=== PATIENT | female | born 1965 | race Caucasian/White ===

== ENCOUNTER → 2016-08-10 | Outpatient (CLI) | payer OTHER ==
[2015-03-30 10:44] VITALS: BP 103/66
[~2016-08-10] MED LIST: CALC500T50 PO; CHOL2000 PO; CLON1TAB3 PO; EXEM25TA PO; FLUV100T2 PO; FLUV150C PO; LIDO700A4 TP; NADO20TA PO; NADO40TA PO; QUET100T4 PO; QUET200T4 PO
--- NOTE | 2016-08-10 13:15 | RAD ---
PROCEDURE MRI of the lumbar spine without contrast 08/10/2016 HISTORY Low back pain which radiates down the right leg for 1 month. TECHNIQUE Unenhanced T1 weighted, T2 weighted and inversion recovery sagittal and T1 weighted and T2 weighted axial images of the lumbar spine were obtained. FINDINGS Comparison study is dated 11/22/2011. Mild S-shaped curvature of the thoracolumbar spine is seen. Degenerative signal changes and loss of height are seen involving the L3-4, L4-5 and L5-S1 discs. Degenerative signal changes are seen within the marrow surrounding these discs. The conus medullaris is normal in morphology, position, and signal characteristics. The L1-2 disc space is within normal limits. At the L2-3 and L3-4 disc spaces there are mild to moderate generalized disc bulges. Degenerative changes are seen involving the facet joints bilaterally. There is mild ligamentum flavum hypertrophy. These findings do not result in significant central spinal canal or neural foraminal stenosis. At the L4-5 disc space the patient is status post right hemilaminectomy. There is a moderate generalized disc bulge. This is eccentric to the left. Degenerative changes are seen involving the facet joints, left greater than right. These findings when combined do not result in significant central spinal canal stenosis. Mild to moderate left greater than right neural foraminal stenosis is seen. At the L5-S1 disc space the patient is status post right hemilaminectomy. There is mild to moderate generalized disc bulge. Degenerative changes are seen involving the facet joints bilaterally. These findings when combined result in mild right neural foraminal stenosis. The left neural foramina is patent. Since the previous examination there has been no significant interval change. IMPRESSION 1. Status post right hemilaminectomy at L4-5 and L5-S1. 2. The changes of degenerative disc disease are seen throughout the lumbar spine. These findings do not result in significant central spinal canal stenosis at any level. Mild to moderate left greater than right neural foraminal stenosis is seen at L4-5. Mild right neural foraminal stenosis is seen at L5-S1. Electronically signed by: Homero Monaco MD (Aug 10, 2016 13:13:47)
== END | disposition home or self-care (01) ==
LOC: MRI 11:18
PROVIDERS: ATTEND Family Medicine
DX: M54.16 Radiculopathy, lumbar region (principal)
CPT/HCPCS: 72148